=== PATIENT | female | born 1945 | race Two or more races ===

== ENCOUNTER 2022-08-02 13:44 | Emergency (ER) | payer OTHER ==
[~2022-08-02] VITALS: Ht 165.1 cm; Wt 64.0 kg
[2022-08-02] MEDS ORDERED: SODIUM CHLORIDE 0.9% 1,000 ML IV ONE (14:30)
[2022-08-02 14:45] LABS: BASOPHILS % 0.4 % (0.0-2.0); EOSINOPHILS % 0.4 % (0.0-5.0); HEMOGLOBIN. 13.4 g/dL (12.0-16.0); LYMPHOCYTES % 20.7 % (20.0-50.0); MEAN CORPUSCULAR HEMOGLOBIN 30.4 pg (28.0-32.0); MEAN PLATELET VOLUME 9.7 fl (7.4-10.4); NEUTROPHILS % 70.5 % (40.0-76.0); PLATELET 203 x1000/uL (130-400); RED CELL DISTRIBUTION WIDTH 13.4 % (11.6-14.6)
[2022-08-02 15:08] LABS: CHLORIDE 114 mEq/L (98-107)
[2022-08-02 18:52] VITALS: BP 214/109
== END 2022-08-02 19:28 | disposition short-term general hospital (02) ==
LOC: ER 13:44 → CANBEDREQ 18:12 → ER 19:28
DX: S02.2XXA Fracture of nasal bones, initial encounter for closed fracture (principal); R55 Syncope and collapse; E11.9 Type 2 diabetes mellitus without complications; Z20.822 Contact with and (suspected) exposure to COVID-19; W01.0XXA Fall on same level from slipping, tripping and stumbling without subsequent striking against object, initial encounter; Y93.89 Activity, other specified; Y92.488 Other paved roadways as the place of occurrence of the external cause
CPT/HCPCS: 36415; 70450; 70486; 71045; 80053; 84484; 85025; 87426; 93005; 96360; 96361; 99285; C9803; J7030